=== PATIENT | female | born 1975 | race African-American/Black ===

== ENCOUNTER 2019-07-04 16:03 | Emergency (ER) | payer SELFPAY ==
[2019-07-04 19:43] LABS: BASOPHILS % 0.3 % (0.0-2.0); HEMATOCRIT. 37.4 % (36.0-48.0); HEMOGLOBIN. 12.7 g/dL (12.0-16.0); LYMPHOCYTES % 43.1 % (20.0-50.0); MEAN CORPUSCULAR HEMOGLOBIN 30.6 pg (28.0-32.0); MEAN PLATELET VOLUME 9.7 fl (7.4-10.4); MONOCYTES % 12.7 % (2.0-8.0); NEUTROPHILS % 43.9 % (40.0-76.0); PLATELET 270 x1000/uL (130-400); RED BLOOD CELL COUNT 4.15 mill/uL (4.2-5.4); RED CELL DISTRIBUTION WIDTH 13.3 % (11.6-14.6)
[2019-07-04 19:47] LABS: CHLORIDE 103 mEq/L (98-107)
[2019-07-04 19:47] LABS: CLARITY URINE CLOUDY (CLEAR); COLOR URINE YELLOW (YELLOW); KETONES URINE NEGATIVE (NEGATIVE); LEUKOCYTE ESTERASE URINE TRACE (NEGATIVE); NITRITE URINE NEGATIVE (NEGATIVE); OCCULT BLOOD URINE NEGATIVE (NEGATIVE); PROTEIN URINE TRACE (NEGATIVE)
[2019-07-04 19:51] LABS: PROTHROMBIN TIME 10.6 sec (9.6-11.0)
[2019-07-04] MEDS ORDERED: METRONIDAZOLE 500MG TABLET PO ONE (21:00)
[2019-07-04] MEDS ORDERED: NITROFURANTOIN 100MG M/M CAPSULE PO ONE (21:00)
[2019-07-04] MEDS ORDERED: IBUPROFEN 600MG TABLET PO ONE (21:00)
[2019-07-04 22:43] VITALS: BP 127/84
== END 2019-07-04 22:44 | disposition home or self-care (01) ==
LOC: ER 16:03
DX: U07.1 COVID-19 (principal); N30.00 Acute cystitis without hematuria; B34.9 Viral infection, unspecified; A59.9 Trichomoniasis, unspecified; R07.89 Other chest pain; I10 Essential (primary) hypertension; E11.9 Type 2 diabetes mellitus without complications
CPT/HCPCS: 36415; 71045; 80053; 81003; 83880; 84484; 85025; 85610; 93005; 99285; U0003